=== PATIENT | female | born 1975 | race Caucasian/White ===

== ENCOUNTER 2016-07-04 17:33 | Emergency (ER) | payer OTHER ==
[~2016-07-04 17:33] MED LIST: HYDR-3533 PO
[2016-07-04 17:35] VITALS: BP 133/67; PULSE 90; RESP 12; TEMP 98.1; O2SAT 99
--- NOTE | 2016-07-04 18:18 | PD ---
HPI Chief Complaint: Stitch Wheeler Problem/Complaint Time Seen by Provider: 18:11 Travel History International Travel<30 days: No Contact w/Intl Traveler<30days: No Traveled to known affect area: No History of Present Illness HPI The patient is a 40-year-old female who presents to the emergency department for pelvic pain and vaginal discharge. The patient is a 2 day history of lower pelvic pain with vaginal discharge. The patient describes the discharge as thick, white, with a fishy and foul odor. The patient denies any nausea, vomiting, diarrhea, or upper abdominal pain. The patient denies any previous history of abdominal surgeries. The patient does have a history of Trichomonas 2 years ago, however, denies any history of gonorrhea or chlamydia. The patient's last menstrual cycle was on June 09, 2016, was abnormal. She is sexually active and not currently on control. Symptoms are mild to moderate, no known alleviating or exacerbating factors. PFSH Past Medical History Blood Disorders: No Heart Rhythm Problems: No Cancer: No Cardiac Catheterization: No Cardiovascular Problems: No Chest Pain: Yes Congestive Heart Failure: No Diabetes: No Diminished Hearing: No Endocrine: No Gastrointestinal Disorders: No Genitourinary: No Musculoskeletal: Yes (hairline fx r thumb AND BACK PROBLLEMS) Neurologic: No Psychiatric: No Reproductive: No Respiratory: No Immunizations Current: Yes (HEPATITIS) ?: Unknown LMP: 06/10/16 Menopausal: No : 5 Para: 4 Miscarriage: 0 : 0 Past Surgical History Coronary Artery Bypass Graft: No Other Surgery: Yes (1999--BREAST AUGMENTATION; MULTIPLE DENTAL EXTRACTIONS) Social History Alcohol Use: No Tobacco Use: Yes Substance Use: No Allergies-Medications (Allergen,Severity, Reaction): Coded Allergies: Codeine (Verified Allergy, Severe, SOB, 07/04/16) Toradol (Verified Allergy, Severe, "CHEST PAIN", 07/04/16) Reported Meds & Prescriptions Reported Meds & Active Scripts Active Review of Systems Except as stated in HPI: all other systems reviewed are Neg General / Constitutional: No: Fever Cardiovascular: No: Chest Pain or Discomfort Respiratory: No: Shortness of Breath Gastrointestinal: No: Nausea, Vomiting, Diarrhea, Abdominal Pain Genitourinary: Positive: Dysuria, Pelvic Pain, Discharge, No: Urgency, Frequency, Hematuria, Vaginal Bleeding Musculoskeletal: No: Myalgias, Arthralgias Skin: No Rash Physical Exam Narrative GENERAL: Awake, alert, pleasant 40-year-old female who appears her stated age and is in no acute respiratory distress. SKIN: Warm and dry. HEAD: Atraumatic. Normocephalic. EYES: Pupils equal and round. No scleral icterus. No injection or drainage. ENT: No nasal bleeding or discharge. Mucous membranes pink and moist. NECK: Trachea midline. No JVD. GASTROINTESTINAL: Abdomen soft, mild suprapubic tenderness, no rebound tenderness. Back: No CVA tenderness. Genitourinary: Exam was performed in the presence of a female nurse. External examination reveals no rashes or lesions. Back examination reveals thick white discharge in the vaginal vault. Cervix is closed. Mild cervical motion tenderness. MUSCULOSKELETAL: No obvious deformities. No clubbing. No cyanosis. No edema. NEUROLOGICAL: Awake and alert. No obvious cranial nerve deficits. Motor grossly within normal limits. Normal speech. PSYCHIATRIC: Appropriate mood and affect; insight and judgment normal. Data Data Last Documented VS Vital Signs Date Time Temp Pulse Resp B/P Pulse Ox O2 Delivery O2 Flow Rate FiO2 07/04/16 18:30 17 07/04/16 17:35 98.1 90 133/67 99 Room Air Orders Gc And Chlamydia Pcr (07/04/16 18:11) Wet Prep Profile (07/04/16 18:11) Urinalysis - C+S If Indicated (07/04/16 18:11) Ed Urine Pregnancytest Poc (07/04/16 18:11) Splinting (07/04/16 ) Azithromycin Powd Pack (Zithromax Powd P (07/04/16 19:45) Ceftriaxone Inj (Rocephin Inj) (07/04/16 19:45) Lidocaine 1% Inj (50 Ml) (Xylocaine 1% I (07/04/16 19:45) Labs Laboratory Tests Test 07/04/16 18:30 Urine Color YELLOW Urine Turbidity CLEAR Urine pH 7.0 Urine Specific [place] 1.007 Urine Protein NEG mg/dL Urine Glucose (UA) NEG mg/dL Urine Ketones NEG mg/dL Urine Occult Blood NEG Urine Nitrite NEG Urine Bilirubin NEG Urine Urobilinogen LESS THAN 2.0 MG/DL Urine Leukocyte Esterase NEG Urine RBC 1 /hpf Urine WBC 1 /hpf Urine Squamous Epithelial 2 /hpf Cells Microscopic Urinalysis Comment CULT NOT INDICATED Clue Cells (Wet Prep) NONE SEEN Vaginal Trichomonas (Wet Prep) NONE SEEN Vaginal Yeast (Wet Prep) NONE SEEN MDM Medical Decision Making Medical Screen Exam Complete: Yes Emergency Medical Condition: Yes Medical Record Reviewed: Yes Interpretation(s) Laboratory Tests Test 07/04/16 18:30 Urine Color YELLOW Urine Turbidity CLEAR Urine pH 7.0 Urine Specific [place] 1.007 Urine Protein NEG mg/dL Urine Glucose (UA) NEG mg/dL Urine Ketones NEG mg/dL Urine Occult Blood NEG Urine Nitrite NEG Urine Bilirubin NEG Urine Urobilinogen LESS THAN 2.0 MG/DL Urine Leukocyte Esterase NEG Urine RBC 1 /hpf Urine WBC 1 /hpf Urine Squamous Epithelial 2 /hpf Cells Microscopic Urinalysis Comment CULT NOT INDICATED Clue Cells (Wet Prep) NONE SEEN Vaginal Trichomonas (Wet Prep) NONE SEEN Vaginal Yeast (Wet Prep) NONE SEEN Differential Diagnosis Differential diagnosis includes PID, cervicitis, Trichomonas, bacterial vaginosis, UTI, , ectopic , atypical appendicitis, pyelonephritis. Narrative Course A bedside UA test was obtained and UA was sent to lab. A pelvic exam was performed in the presence of a female nurse. Wet prep was sent to lab. Bedside UA test was negative. Wet prep was negative. UA is unremarkable. Patient's exam is consistent with vaginitis/cervicitis, therefore , patient was treated with Rocephin and Zithromax. The patient is advised to follow-up with her primary physician and return if symptoms worsen or progress. Diagnosis Primary Impression: Vaginitis Qualified Code: N76.0 - Acute vaginitis Additional Impression: Pelvic pain Patient Instructions: General Instructions Additional Instructions: Follow-up with your primary physician. Return if symptoms worsen or progress. Return for fever, pain that localizes to the right lower quadrant, and intractable nausea/vomiting. Disposition: 01 DISCHARGE HOME Condition: Stable Sudarshan Dutton MD Jul 04, 2016 18:18 Sudarshan Dutton MD Jul 04, 2016 18:18
[2016-07-04 19:22] LABS: BLOOD, URINE NEG (NEG); COMMENT (UR) CULT NOT INDICATED; CULTURE IF INDICATED CULT NOT INDICATED; GLUCOSE,URINE NEG (NEG); KETONE, URINE NEG (NEG); NITRITE,URINE NEG (NEG); SQUAMOUS EPITHELIAL CELL URINE 2 /hpf (0-5); URINE COLOR YELLOW (YELLW/STRAW)
[2016-07-04] MEDS ORDERED: LIDOCAINE HCL 1% 50 ML VIAL IM ONE (19:45)
[2016-07-04] MEDS ORDERED: AZITHROMYCIN PWD FOR SUSP 1 GM PACKET PO ONE (19:45)
[2016-07-04] MEDS ORDERED: cefTRIAXone 250 MG VIAL IM ONE (19:45)
[2016-07-04 21:21] LABS: CHLAMYDIA PCR NOT DETECTED (NOT DETECT); NEISSERIA PCR NOT DETECTED (NOT DETECT)
== END 2016-07-04 19:54 | disposition home or self-care (01) ==
LOC: NEPD 17:33
DX: N76.0 Acute vaginitis (principal); S62.90XA Unspecified fracture of unspecified hand, initial encounter for closed fracture; X58.XXXA Exposure to other specified factors, initial encounter
CPT/HCPCS: 29125; 81001; 84703; 87210; 87491; 87591; 96372; 99283; J0696

== ENCOUNTER 2016-12-10 09:10 | Emergency (ER) | payer OTHER ==
[~2016-12-10] VITALS: Ht 160 cm; Wt 55.0 kg
[2016-12-10 09:12] VITALS: BP 134/61; PULSE 60; RESP 20; TEMP 98.7; O2SAT 100
--- NOTE | 2016-12-10 09:42 | PD ---
HPI Chief Complaint: Related Problem Time Seen by Provider: 09:42 Travel History International Travel<30 days: No Contact w/Intl Traveler<30days: No Traveled to known affect area: No History of Present Illness HPI 41-year-old female came to the emergency room with history of pelvic pain since past 1 week. She found out last week that she was when she was at [facility] because of the pain. No spotting. The patient points to her lower back radiating bilaterally and coming to the front. It's a constant ache she said. No history of fever or chills. Vital signs were stable here. No history of dysuria. Patient is A1. She says she has been vomiting quite a bit for the past 1 week as well. Today she was slightly lightheaded. [facility] Past Medical History Narrative Medical List of her past medical, surgical, social family history was reviewed from the nursing note Blood Disorders: No Cardiac Catheterization: No Cardiovascular Problems: No Chest Pain: Yes Congestive Heart Failure: No Diabetes: No Diminished Hearing: No Endocrine: No Gastrointestinal Disorders: No Genitourinary: No Musculoskeletal: Yes (BACK PROBLLEMS) Neurologic: No Psychiatric: No Reproductive: No Respiratory: No Immunizations Current: Yes (HEPATITIS) ?: LMP: 10/09/16 : 5 Para: 4 Miscarriage: 0 : 0 Past Surgical History Coronary Artery Bypass Graft: No Other Surgery: Yes (1999--BREAST AUGMENTATION; MULTIPLE DENTAL EXTRACTIONS) Social History Alcohol Use: No Tobacco Use: Yes (6 cigarrettes per day) Substance Use: No Allergies-Medications (Allergen,Severity, Reaction): Coded Allergies: Codeine (Verified Allergy, Severe, SOB, 12/10/16) Toradol (Verified Allergy, Severe, "CHEST PAIN", 12/10/16) Comments List of allergies reviewed from the nursing note. Reported Meds & Prescriptions Reported Meds & Active Scripts Active Zofran Odt (Ondansetron Odt) 4 Mg Tab 4 Mg SL Q6HR PRN Narrative Medication List of her home medications reviewed from the nursing note. Review of Systems Except as stated in HPI: all other systems reviewed are Neg Physical Exam Narrative GENERAL: Awake, alert, moderate distress SKIN: Focused skin assessment warm/dry. HEAD: Atraumatic. Normocephalic. EYES: Pupils equal and round. No scleral icterus. No injection or drainage. ENT: No nasal bleeding or discharge. Mucous membranes pink and moist. NECK: Trachea midline. No JVD. CARDIOVASCULAR: Regular rate and rhythm. No murmur appreciated. RESPIRATORY: No accessory muscle use. Clear to auscultation. Breath sounds equal bilaterally. GASTROINTESTINAL: Abdomen soft, non-tender, nondistended. Hepatic and splenic margins not palpable. MUSCULOSKELETAL: No obvious deformities. No clubbing. No cyanosis. No edema. NEUROLOGICAL: Awake and alert. No obvious cranial nerve deficits. Motor grossly within normal limits. Normal speech. PSYCHIATRIC: Appropriate mood and affect; insight and judgment normal. Data Data Last Documented VS Vital Signs Date Time Temp Pulse Resp B/P Pulse Ox O2 Delivery O2 Flow Rate FiO2 12/10/16 09:41 61 18 12/10/16 09:12 98.7 134/61 100 Room Air Orders Beta Hcg (Quant/Titer) (12/10/16 09:49) Complete Blood Count With Diff (12/10/16 09:49) Basic Metabolic Panel (Bmp) (12/10/16 09:49) Type And Screen (12/10/16 09:49) Urinalysis - C+S If Indicated (12/10/16 09:49) Ed Poc Ultrasound (12/10/16 09:49) Sodium Chlor 0.9% 1000 Ml Inj (Ns 1000 M (12/10/16 10:00) Labs Laboratory Tests Test 12/10/16 10:00 White Blood Count 12.6 TH/MM3 Red Blood Count 4.21 MIL/MM3 Hemoglobin 13.0 GM/DL Hematocrit 39.3 % Mean Corpuscular Volume 93.3 FL Mean Corpuscular Hemoglobin 30.8 PG Mean Corpuscular Hemoglobin 33.0 % Concent Red Cell Distribution Width 13.4 % Platelet Count 207 TH/MM3 Mean Platelet Volume 8.5 FL Neutrophils (%) (Auto) 80.3 % Lymphocytes (%) (Auto) 14.2 % Monocytes (%) (Auto) 4.8 % Eosinophils (%) (Auto) 0.4 % Basophils (%) (Auto) 0.3 % Neutrophils # (Auto) 10.1 TH/MM3 Lymphocytes # (Auto) 1.8 TH/MM3 Monocytes # (Auto) 0.6 TH/MM3 Eosinophils # (Auto) 0.0 TH/MM3 Basophils # (Auto) 0.0 TH/MM3 CBC Comment DIFF FINAL Differential Comment Urine Color YELLOW Urine Turbidity CLEAR Urine pH 7.0 Urine Specific [place] 1.022 Urine Protein TRACE mg/dL Urine Glucose (UA) NEG mg/dL Urine Ketones NEG mg/dL Urine Occult Blood NEG Urine Nitrite NEG Urine Bilirubin NEG Urine Urobilinogen LESS THAN 2.0 MG/DL Urine Leukocyte Esterase NEG Urine RBC 2 /hpf Urine WBC 1 /hpf Urine Squamous Epithelial 4 /hpf Cells Urine Hyaline Casts 1 /lpf Urine Mucus FEW /lpf Microscopic Urinalysis Comment CULT NOT INDICATED Sodium Level 140 MEQ/L Potassium Level 3.5 MEQ/L Chloride Level 107 MEQ/L Carbon Dioxide Level 27.5 MEQ/L Anion Gap 6 MEQ/L Blood Urea Nitrogen 7 MG/DL Creatinine 0.62 MG/DL Estimat Glomerular Filtration 107 ML/MIN Rate Random Glucose 85 MG/DL Calcium Level 8.7 MG/DL Human Chorionic Gonadotropin, [address] MIU/ML Quant Blood Type A POSITIVE Antibody Screen NEGATIVE MDM Medical Decision Making Medical Screen Exam Complete: Yes Emergency Medical Condition: Yes Medical Record Reviewed: Yes Differential Diagnosis UTI, dehydration, ectopic Narrative Course 12 PM based on my bedside ultrasound patient has in utero with positive heartbeat. Blood test shows slight leukocytosis but otherwise UA is negative. I've given her liter of IV fluid. Given the fact that this pain has been going on for past 1 week and the abdomen seems benign I'm comfortable discharging her home. She'll go home with a prescription for Zofran. She has been asked to follow up with OB and return to the ER if symptoms worsen. Patient understands this. Procedures Procedure Narrative Emergency Department Pelvic ultrasound was performed with patient consent. The curvilinear probe was used in the transverse and sagittal views within the suprapubic region revealing single, live intrauterine . heart rate was 127 bpm. See this measures 6 weeks 3 days by crown-rump length. EKG Prior to Arrival: No Diagnosis Primary Impression: Pelvic pain Additional Impressions: Intrauterine First trimester Vomiting during Referrals: Primary Care Physician 2 days Additional Instructions: Please follow-up with your OB for the next couple days. Return to the ER if the condition worsens or any other new concerns. Drink lots of fluids to stay hydrated during the . Do not lift heavy weight. Take the medication as per the prescription direction. Med/Other Pt SpecificInfo: Prescription(s) given Scripts Ondansetron Odt (Zofran Odt)4 Mg Tab4 Mg SL Q6HR PRN (Nausea/Vomiting) #20 TAB Ref 0 Prov:Ari Mckeon MD 12/10/16 Disposition: 01 DISCHARGE HOME Condition: Stable Ari Mckeon MD Dec 10, 2016 09:42
[2016-12-10] MEDS ORDERED: SODIUM CHLOR 0.9% 1000 ML INJ 1,000 ML IV ONE (10:00)
[2016-12-10 10:26] LABS: AUTOMATED NEUTROPHIL # 10.1 TH/MM3 (1.8-7.7); BASOPHIL % 0.3 % (0.0-2.0); EOSINOPHIL % 0.4 % (0.0-4.0); HEMATOCRIT 39.3 % (35.0-46.0); HEMO FLAGS DIFF FINAL; LYMPH % 14.2 % (9.0-44.0); LYMPHOCYTE # 1.8 TH/MM3 (1.0-4.8); MEAN CELL VOLUME 93.3 FL (80.0-100.0); MEAN CORPUSCULAR HEMOGLOBIN 30.8 PG (27.0-34.0); MONO % 4.8 % (0.0-8.0); NEUT % 80.3 % (16.0-70.0); PLATELET COUNT 207 TH/MM3 (150-450); RED BLOOD COUNT 4.21 MIL/MM3 (4.00-5.30); RED CELL DISTRIBUTION WIDTH 13.4 % (11.6-17.2); WHITE BLOOD COUNT 12.6 TH/MM3 (4.0-11.0)
[2016-12-10 10:36] LABS: BLOOD, URINE NEG (NEG); GLUCOSE,URINE NEG (NEG); HYALINE CAST, URINE 1 /lpf (RARE); KETONE, URINE NEG (NEG); MUCUS URINE FEW /lpf (OCC); NITRITE,URINE NEG (NEG); SQUAMOUS EPITHELIAL CELL URINE 4 /hpf (0-5); URINE COLOR YELLOW (YELLW/STRAW)
[2016-12-10 10:37] LABS: COMMENT (UR) CULT NOT INDICATED; CULTURE IF INDICATED CULT NOT INDICATED
[2016-12-10 10:49] LABS: BICARBONATE 27.5 MEQ/L (21.0-32.0); POTASSIUM 3.5 MEQ/L (3.5-5.1)
[2016-12-10] MEDS ORDERED: ZOFR4TAB3 SL (12:00)
== END 2016-12-10 12:30 | disposition home or self-care (01) ==
LOC: NEPE 09:10
DX: O21.9 Vomiting of pregnancy, unspecified (principal); O26.899 Other specified pregnancy related conditions, unspecified trimester; R10.2 Pelvic and perineal pain; R42 Dizziness and giddiness; O99.331 Smoking (tobacco) complicating pregnancy, first trimester; Z79.899 Other long term (current) drug therapy
CPT/HCPCS: 80048; 81001; 84702; 85025; 86850; 86900; 86901; 96360; 99285; J7030

== ENCOUNTER → 2017-01-02 | Outpatient (CLI) | payer OTHER ==
[~2017-01-02] MED LIST changes: -HYDR-3533 PO; +ZOFR4TAB3 SL
== END ==
LOC: HPND 10:11
PROVIDERS: ATTEND Obstetrics & Gynecology
DX: O09.521 Supervision of elderly multigravida, first trimester (principal); Z3A.10 10 weeks gestation of pregnancy
CPT/HCPCS: 76801

== ENCOUNTER → 2017-01-03 | Outpatient (CLI) | payer OTHER | LOC: HPND 10:48 | PROVIDERS: ATTEND Obstetrics & Gynecology | DX: O09.521 Supervision of elderly multigravida, first trimester (principal); O35.8XX0 Maternal care for other (suspected) fetal abnormality and damage, not applicable or unspecified; O09.291 Supervision of pregnancy with other poor reproductive or obstetric history, first trimester; Z3A.10 10 weeks gestation of pregnancy | CPT/HCPCS: 76815 ==

== ENCOUNTER → 2017-02-16 | Outpatient (CLI) | payer OTHER ==
[~2017-02-16] MED LIST changes: +DOXY100C PO; -ZOFR4TAB3 SL
== END ==
LOC: HPND 09:29
PROVIDERS: ATTEND Obstetrics & Gynecology
DX: O35.8XX0 Maternal care for other (suspected) fetal abnormality and damage, not applicable or unspecified (principal); O35.1XX0 Maternal care for (suspected) chromosomal abnormality in fetus, not applicable or unspecified; O09.522 Supervision of elderly multigravida, second trimester
CPT/HCPCS: 76815

== ENCOUNTER 2017-02-21 10:28 | Observation (INO) | payer OTHER ==
[2017-02-21] VITALS (15 sets, daily range): BP systolic 75–121; BP diastolic 42–83; PULSE 53–76; RESP 16–22; TEMP 98.9–101
--- NOTE | 2017-02-21 11:09 | HHI.HP ---
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 Date Seen: Feb 21, 2017 Travel History International Travel<30 Days: No Contact w/Intl Traveler<30Days: No History of Present Illness HPI Patient is a 41 year old who presents today for induction for termination of fetus with trisomy 18 with multiple anomalies. Patient has been seen, evaluated and counseled by maternal medicine that a risk for Trisomy 18 is exceedingly high. Multiple anomalies were seen on ultrasound. Patient given the option for termination of versus continuation, and she has opted for termination. She denies any vaginal bleeding or discharge. No gush or leaking of fluid. No contractions. care with [facility]. History Past Medical History Medical History: Denies Significant Hx Obstetric History Obstetric History 1997: Term , uncomplicated vaginal delivery, male in good health 2001: Term , uncomplicated vaginal delivery, 8 lbs. 4 oz. male in good health 2004: Term , uncomplicated vaginal delivery 7 lbs. 12 oz. male infant in good health 2012: Term , uncomplicated vaginal delivery, 8 lbs. 7 oz. infant male in good health 2015: , 22 week , complicated by bleeding and still , vaginal delivery, female baby Past Surgical History Narrative Surgical Breast augmentation Repair of right leg fracture Family History Family History: Negative Social History Alcohol Use: No Tobacco Use: No Substance Abuse: No Allergies-Medications (Allergen,Severity, Reaction): Coded Allergies: codeine (Unverified Allergy, Severe, SOB, 02/15/17) ketorolac (Unverified Allergy, Severe, "CHEST PAIN", 02/15/17) Home Meds Discontinued Scripts Ondansetron Odt (Zofran Odt) 4 Mg Tab, 4 MG SL Q6HR Y for Nausea/Vomiting, #20 TAB 0 Refills Prov:Ari Mckeon MD 12/10/16 Review of Systems Except as stated in HPI: all other systems reviewed are Neg General / Constitutional: No: Fever, Chills Eyes: No: Blurred Vision, Visual changes HENT: No: Headaches Cardiovascular: No: Chest Pain or Discomfort, Palpitations Respiratory: No: Cough, Short of Breath Gastrointestinal: No: Nausea, Vomiting, Abdominal Pain Genitourinary: No: Dysuria, Hematuria, Pelvic Pain, Discharge, Vaginal Bleeding Musculoskeletal: No: Edema Neurologic: No: Headache Psychiatric: No: Substance Abuse Physical Exam Narrative GENERAL: Well-nourished, well-developed patient. SKIN: Warm and dry. HEAD: Normocephalic and atraumatic. EYES: No scleral icterus. No injection or drainage. ENT: No nasal drainage noted. Mucous membranes pink. Airway patent. NECK: Supple, trachea midline. No JVD. CARDIOVASCULAR: Regular rate and rhythm without murmurs, gallops, or rubs. RESPIRATORY: Breath sounds equal bilaterally. No accessory muscle use. ABDOMEN/GI: Abdomen soft, non-tender, bowel sounds present, no rebound, no guarding Gravid to 17 weeks size GENITOURINARY: External Genitalia: intact and normal in appearance BUS glands: normal Cervix: posterior Dilatation: 0 Effacement: 0 Station: -3 Presentation: vertex Membranes: intact Uterine Contractions: none EXTREMITIES: No cyanosis or edema. BACK: Nontender without obvious deformity. No CVA tenderness. NEUROLOGICAL: Awake and alert. Motor and sensory grossly within normal limits. Normal speech. Caprini VTE Risk Assessment Caprini VTE Risk Assessment: No/Low Risk (score <= 1) Caprini Risk Assessment Model Point Value = 1 Point Value = 2 Point Value = 3 Point Value = 5 Age 41-60 Minor surgery BMI > 25 kg/m2 Swollen legs Varicose veins or History of unexplained or recurrent spontaneous Oral contraceptives or hormone replacement Sepsis (< 1 month) Serious lung disease, including pneumonia (< 1 month) Abnormal pulmonary function Acute myocardial infarction Congestive heart failure (< 1 month) History of inflammatory bowel disease Medical patient at bed rest Age 61-74 Arthroscopic surgery Major open surgery (> 45 min) Laparoscopic surgery (> 45 min) Malignancy Confined to bed (> 72 hours) Immobilizing plaster cast Central venous access Age >= 75 History of VTE Family history of VTE Factor V Leiden Prothrombin [id number] Lupus anticoagulant Anticardiolipin antibodies Elevated serum homocysteine Heparin-induced thrombocytopenia Other congenital or acquired thrombophilia Stroke (< 1 month) Elective arthroplasty Hip, pelvis, or leg fracture Acute spinal cord injury (< 1 month) Prophylaxis Regimen Total Risk Factor Score Risk Level Prophylaxis Regimen 0-1 Low Early ambulation 2 Moderate Order ONE of the following: *Sequential Compression Device (SCD) *Heparin 5000 units SQ BID 3-4 Higher Order ONE of the following medications: *Heparin 5000 units SQ TID *Enoxaparin/Lovenox 40 mg SQ daily (WT < 150 kg, CrCl > 30 mL/min) *Enoxaparin/Lovenox 30 mg SQ daily (WT < 150 kg, CrCl > 10-29 mL/min) *Enoxaparin/Lovenox 30 mg SQ BID (WT < 150 kg, CrCl > 30 mL/min) AND/OR *Sequential Compression Device (SCD) 5 or more Highest Order ONE of the following medications: *Heparin 5000 units SQ TID (Preferred with Epidurals) *Enoxaparin/Lovenox 40 mg SQ daily (WT < 150 kg, CrCl > 30 mL/min) *Enoxaparin/Lovenox 30 mg SQ daily (WT < 150 kg, CrCl > 10-29 mL/min) *Enoxaparin/Lovenox 30 mg SQ BID (WT < 150 kg, CrCl > 30 mL/min) AND *Sequential Compression Device (SCD) Data Data Vital Signs Reviewed: Yes Orders Orders Admit To Inpatient (02/21/17 ) Code Status (02/21/17 11:06) Vital Signs (Adult) Q4H (02/21/17 11:06) Activity Oob Ad Yelena (02/21/17 11:06) Diet Regular Basic (02/21/17 Lunch) Sodium Chloride 0.9% Flush (Ns Flush) (02/21/17 11:15) Assessment/Plan Problem List: (1) (induced) termination of with other complications ICD Codes: O04.89 - (Induced) termination of with other complications (2) Trisomy 18 of fetus in current ICD Codes: O35.1XX0 - Maternal care for (suspected) chromosomal abnormality in fetus, not applicable or unspecified (3) Congenital anomalies ICD Codes: Q89.7 - Multiple congenital malformations, not elsewhere classified Assessment and Plan 41 year old at 17 weeks gestation. Induced termination of for Trisomy 18 and multiple anomalies with Cytotec 400mcg Vaginally Q4H. sdw Millie Wong MD, R3 Feb 21, 2017 11:09
[2017-02-21] MEDS ORDERED: CITRIC ACID-SODIUM CITRATE LIQ 30 ML UDC PO SCH (11:15)
[2017-02-21] MEDS ORDERED: MORPHINE SULFATE 10 MG/ML INJ IV PRN (11:15)
[2017-02-21] MEDS ORDERED: SODIUM CHLORIDE 0.9% FLUSH 10 ML FLUSH IV FLUSH PRN (11:15)
[2017-02-21] MEDS ORDERED: ONDANSETRON HCL 4 MG/2 ML VIAL IV PRN (11:15)
[2017-02-21] MEDS ORDERED: DIPHENOXYLATE/ATROPINE 2.5 MG/0.025 MG TAB PO PRN (11:15)
[2017-02-21] MEDS ORDERED: LORazepam 1 MG TAB PO PRN (11:15)
[2017-02-21] MEDS ORDERED: MORPHINE SULFATE 4 MG/ML INJ IV PRN (11:15)
[2017-02-21 11:50] LABS: AUTOMATED NEUTROPHIL # 10.2 TH/MM3 (1.8-7.7); BASOPHIL # 0.1 TH/MM3 (0-0.2); BASOPHIL % 0.8 % (0.0-2.0); EOSINOPHIL # 0.1 TH/MM3 (0-0.4); EOSINOPHIL % 0.4 % (0.0-4.0); HEMATOCRIT 37.2 % (35.0-46.0); HEMO FLAGS DIFF FINAL; LYMPH % 14.7 % (9.0-44.0); LYMPHOCYTE # 1.9 TH/MM3 (1.0-4.8); MEAN CELL VOLUME 94.9 FL (80.0-100.0); MEAN CORPUSCULAR HEMOGLOBIN 31.6 PG (27.0-34.0); MEAN CORPUSCULAR HGB CONC 33.3 % (32.0-36.0); MONO % 3.2 % (0.0-8.0); NEUT % 80.9 % (16.0-70.0); PLATELET COUNT 244 TH/MM3 (150-450); RED BLOOD COUNT 3.92 MIL/MM3 (4.00-5.30); RED CELL DISTRIBUTION WIDTH 13.6 % (11.6-17.2); WHITE BLOOD COUNT 12.6 TH/MM3 (4.0-11.0)
[2017-02-21 12:06] LABS: ALT (GPT) 11 U/L (10-53); ANION GAP 10 MEQ/L (5-15); AST (GOT) 12 U/L (15-37); BICARBONATE 24.3 MEQ/L (21.0-32.0); BLOOD UREA NITROGEN 5 MG/DL (7-18); CHLORIDE 106 MEQ/L (98-107); GLOMERULAR FILTRATION RATE 107 ML/MIN (>89); POTASSIUM 3.4 MEQ/L (3.5-5.1); SODIUM (NA) 140 MEQ/L (136-145)
[2017-02-21 12:09] LABS: ALKALINE PHOSPHATASE 50 U/L (45-117); TOTAL BILIRUBIN ADULT 0.4 MG/DL (0.2-1.0)
[2017-02-21 12:15] LABS: BACTERIA, URINE RARE /hpf; BLOOD, URINE NEG (NEG); COMMENT (UR) CULT NOT INDICATED; CULTURE IF INDICATED CULT NOT INDICATED; GLUCOSE,URINE NEG (NEG); KETONE, URINE 10 mg/dL (NEG); NITRITE,URINE NEG (NEG); PH, URINE 5.5 (5.0-8.5); RENAL EPITHELIAL CELLS <1 /hpf; SQUAMOUS EPITHELIAL CELL URINE 1 /hpf (0-5); URINE COLOR YELLOW (YELLW/STRAW)
[2017-02-21] MEDS: MISOPROSTOL 200 MCG TAB VAGINAL SCH ×3 (13:28→19:53)
[2017-02-21] MEDS: ACETAMINOPHEN 325 MG TAB PO PRN ×2 (16:37→20:11)
[2017-02-21] MEDS: MORPHINE SULFATE 4 MG/ML INJ IV PRN ×2 (17:59→20:30)
[2017-02-21] MEDS ORDERED: OXYTOCIN 30 UNITS-500ML PREMIX 500 ML ONE (19:14)
--- NOTE | 2017-02-21 19:44 | PD.OB.DELI ---
Weeks gestation: 17 Gest age assessed date: Feb 21, 2017 Gest age assessed time: 13:00 Pt started active labor?: No Medical induction of labor?: Yes Medical induction start date: Feb 21, 2017 Medical induction start time: 13:00 Artificial rupture of membrane: No Anesthesia: None Episiotomy: None Vaginal Delivery: Normal Presentation: Vertex Nuchal Cord: None Delayed cord clamping (45 sec): No : Female Delivery date: Feb 21, 2017 Delivery time: 19:08 One Minute : 0 Five Minute : 0 Weight: 112 gm Placenta: Spontaneous delivery, Intact Laceration: No lacerations Estimated blood loss: 50 cc Additional Information 17 wk IUP with Tri 18 , multiple anomalies , pt opted for ETOP Trey Barnes II, MD Feb 21, 2017 19:44
[2017-02-21] MEDS ORDERED: cefTRIAXone INJ 2,000 MG in SODIUM CHLORIDE 0.9% INJ 100 ML IV ONE (20:00)
[2017-02-21] MEDS ORDERED: IBUPROFEN 600 MG TAB PO PRN (20:00)
[2017-02-21] MEDS ORDERED: OXYTOCIN 30 UNITS-500ML PREMIX 500 ML IV ONE (20:00)
[2017-02-21] MEDS ORDERED: SODIUM CHLORIDE 0.9% FLUSH 10 ML FLUSH IV FLUSH SCH (21:00)
== END 2017-02-21 23:57 | disposition home or self-care (01) ==
LOC: H2EA 10:28
PROVIDERS: ADMIT Obstetrics & Gynecology Maternal & Fetal Medicine; ATTEND Obstetrics & Gynecology Maternal & Fetal Medicine
DX: O35.1XX1 Maternal care for (suspected) chromosomal abnormality in fetus, fetus 1 (principal); Q89.9 Congenital malformation, unspecified; Q91.3 Trisomy 18, unspecified; Z3A.17 17 weeks gestation of pregnancy; Z37.1 Single stillbirth
CPT/HCPCS: 59409; 80053; 81001; 85025; 88300; 88305; 96365; 96366; G0378; J0696; J2270; J2590

== ENCOUNTER → 2017-02-21 | Outpatient (CLI) | payer OTHER | LOC: HPND 07:43 | PROVIDERS: ATTEND Obstetrics & Gynecology | DX: O35.8XX0 Maternal care for other (suspected) fetal abnormality and damage, not applicable or unspecified (principal); O35.1XX0 Maternal care for (suspected) chromosomal abnormality in fetus, not applicable or unspecified; O09.522 Supervision of elderly multigravida, second trimester; O09.292 Supervision of pregnancy with other poor reproductive or obstetric history, second trimester; O28.0 Abnormal hematological finding on antenatal screening of mother | CPT/HCPCS: 76811 ==

== ENCOUNTER 2017-04-16 09:53 | Emergency (ER) | payer OTHER ==
[~2017-04-16] VITALS: Ht 160 cm; Wt 56.0 kg
[2017-04-16 09:56] VITALS: BP 115/58; PULSE 88; RESP 15; TEMP 98.4; O2SAT 97
--- NOTE | 2017-04-16 10:20 | PD ---
HPI Chief Complaint: Assistant Health Educator Problem/Complaint Time Seen by Provider: 10:05 Travel History International Travel<30 days: No Contact w/Intl Traveler<30days: No Traveled to known affect area: No History of Present Illness HPI 41-year-old female presents to emergency Department with complaint of pelvic pain, vaginal discharge, vaginal odor, dysuria times one week. Reports diarrhea 3 weeks. Reports vomiting in the mornings only for the last week. Reports subjective fevers. Has not taken her temperature and cannot reported MAXIMUM TEMPERATURE. Last menstrual period was March 18. Says her significant other of 3 years when outside of the relationship and she found out 3 weeks ago. Possible exposure to STD/STI. Has been taking ibuprofen and Tylenol for symptom management. Rates pain 7/10. Reports pain as a throbbing and shooting sensation. Denies history of abdominal surgeries. Is a patient of [facility] now. No known relieving or aggravating factors. Allergies to codeine and Toradol. Has no other medical complaints. No other modifying factors or associated signs and symptoms. PFSH Past Medical History Blood Disorders: No Cardiac Catheterization: No Cardiovascular Problems: No Chest Pain: Yes Congestive Heart Failure: No Diabetes: No Diminished Hearing: No Endocrine: No Gastrointestinal Disorders: No Genitourinary: No Neurologic: No Psychiatric: No Reproductive: No Respiratory: No Immunizations Current: Yes (HEPATITIS) ?: Unknown LMP: 03/18/17 : 5 Para: 4 Miscarriage: 0 : 0 Past Surgical History Coronary Artery Bypass Graft: No Other Surgery: Yes (1999--BREAST AUGMENTATION; MULTIPLE DENTAL EXTRACTIONS) Social History Alcohol Use: No Tobacco Use: No Substance Use: No Allergies-Medications (Allergen,Severity, Reaction): Coded Allergies: codeine (Unverified Allergy, Severe, SOB, 02/15/17) ketorolac (Unverified Allergy, Severe, "CHEST PAIN", 02/15/17) Reported Meds & Prescriptions Reported Meds & Active Scripts Active No Active Prescriptions or Reported Medications Review of Systems Except as stated in HPI: all other systems reviewed are Neg Physical Exam Narrative GENERAL: Well-nourished, well-developed female female patient, in no acute distress; afebrile, nontoxic-appearing SKIN: Warm and dry. HEAD: Atraumatic. Normocephalic. EYES: Pupils equal and round. No scleral icterus. No injection or drainage. ENT: Mucous membranes pink and moist. NECK: Trachea midline. No lymphadenopathy. CARDIOVASCULAR: Regular rate and rhythm. No murmur appreciated. RESPIRATORY: No accessory muscle use. Clear to auscultation. Breath sounds equal bilaterally. GASTROINTESTINAL: Abdomen soft, non-tender, nondistended. Bilateral pelvic region tender to palpation. Hepatic and splenic margins not palpable. No guarding, rigidity, rebound tenderness. Bladder feels distended on palpation; with tenderness on palpation. PELVIC: Exam done in the presence of a nurse. Speculum exam reveals nonedematous and nonerythematous cervix with white, mucopurulent, foul-smelling discharge. Bimanual exam reveals no palpable masses or adnexa tenderness, no uterine tenderness. Positive cervical motion tenderness. BACK: No CVA tenderness. MUSCULOSKELETAL: No obvious deformities. No clubbing. No cyanosis. No edema. NEUROLOGICAL: Awake and alert. No obvious cranial nerve deficits. Motor grossly within normal limits. Normal speech. PSYCHIATRIC: Appropriate mood and affect; insight and judgment normal. Data Data Last Documented VS Vital Signs Date Time Temp Pulse Resp B/P (MAP) Pulse Ox O2 Delivery O2 Flow Rate FiO2 04/16/17 09:56 98.4 88 15 115/58 (77) 97 Orders Orders Gc And Chlamydia Pcr (04/16/17 10:05) Wet Prep Profile (04/16/17 10:05) Urinalysis - C+S If Indicated (04/16/17 10:05) Ed Urine Pregnancytest Poc (04/16/17 10:05) Acetaminophen (Tylenol) (04/16/17 11:00) Azithromycin Powd Pack (Zithromax Powd P (04/16/17 11:30) Ceftriaxone Inj (Rocephin Inj) (04/16/17 11:30) Lidocaine 1% Inj (50 Ml) (Xylocaine 1% I (04/16/17 11:30) Labs Laboratory Tests Test 04/16/17 11:06 04/16/17 11:20 Urine Color YELLOW Urine Turbidity HAZY Urine pH 7.0 Urine Specific [place] 1.020 Urine Protein NEG mg/dL Urine Glucose (UA) NEG mg/dL Urine Ketones NEG mg/dL Urine Occult Blood NEG Urine Nitrite NEG Urine Bilirubin NEG Urine Urobilinogen 2.0 MG/DL Urine Leukocyte Esterase NEG Urine RBC 3 /hpf Urine WBC 1 /hpf Urine Squamous Epithelial Cells 4 /hpf Urine Mucus FEW /lpf Microscopic Urinalysis Comment CULT NOT INDICATED Clue Cells (Wet Prep) NONE SEEN Vaginal Trichomonas (Wet Prep) NONE SEEN Vaginal Yeast (Wet Prep) NONE SEEN MDM Medical Decision Making Medical Screen Exam Complete: Yes Emergency Medical Condition: Yes Medical Record Reviewed: Yes Differential Diagnosis PID, chlamydia, gonorrhea, trichomoniasis, bacterial vaginosis, Narrative Course 41-year-old female physical exam consistent with possible PID. Positive cervical motion tenderness. Cervix is edematous and erythematous with foul smelling vaginal discharge. Patient will be empirically treated with Rocephin, azithromycin, and doxycycline for home. Rocephin And azithromycin administered in the ER. 1124: Urinalysis without signs of infection. 1240: Trichomonas, vaginal yeast, clue cells negative. Chlamydia and gonorrhea pending. Patient was discussed with Dr. Deluca, my attending physician , and she agrees with my plan of care. Doxycycline prescribed for home. Patient is a patient of [facility] and says she will make an appointment for follow-up. Instructed patient to follow up with primary care provider. Patient verbalizes understanding and agreement with treatment plan. Patient is medically cleared and stable for discharge. Discussed reasons to return to the emergency department. Patient agrees with treatment plan. The patients vital signs are stable and the patient is stable for outpatient follow- up and treatment. Patient discharged home, stable and in no acute distress. Diagnosis Primary Impression: Cervicitis Referrals: [facility] Primary Care Physician Patient Instructions: Chlamydia (ED), General Instructions, Gonorrhea (ED), Sexually Transmitted Diseases (ED) Additional Instructions: Avoid sexual activity until you follow up with her primary care provider Inform all sexual partners within the past 3-6 months that they need to be evaluated and treated Use condoms every time you have sex Follow-up with primary care provider Follow-up with [facility], [facility], or [employer] [employer] Return to the emergency department immediately with worsening of symptoms Med/Other Pt SpecificInfo: Prescription(s) given Scripts Doxycycline Hyclate (Doxycycline Hyclate) 100 Mg Cap 100 MG PO BID for Infection for 14 Days, #28 CAP 0 Refills Prov: Yasmin Egan 04/16/17 Disposition: 01 DISCHARGE HOME Condition: Stable Yasmin Egan Apr 16, 2017 10:19
[2017-04-16] MEDS ORDERED: ACETAMINOPHEN 325 MG TAB PO ONE (11:00)
[2017-04-16 11:15] LABS: BILIRUBIN, URINE NEG (NEG); BLOOD, URINE NEG (NEG); GLUCOSE,URINE NEG (NEG); KETONE, URINE NEG (NEG); MUCUS URINE FEW /lpf (OCC); NITRITE,URINE NEG (NEG); SQUAMOUS EPITHELIAL CELL URINE 4 /hpf (0-5); URINE COLOR YELLOW (YELLW/STRAW); URINE LEUKOCYTE ESTERASE NEG (NEG)
[2017-04-16] MEDS ORDERED: LIDOCAINE HCL 1% 50 ML VIAL IM ONE (11:30)
[2017-04-16] MEDS ORDERED: cefTRIAXone 250 MG VIAL IM ONE (11:30)
[2017-04-16] MEDS ORDERED: AZITHROMYCIN PWD FOR SUSP 1 GM PACKET PO ONE (11:30)
[2017-04-16] MEDS ORDERED: DOXY100C PO (12:42)
== END 2017-04-16 13:05 | disposition home or self-care (01) ==
LOC: NEPD 09:53
DX: N72 Inflammatory disease of cervix uteri (principal); R19.7 Diarrhea, unspecified
CPT/HCPCS: 81001; 84703; 87210; 87491; 87591; 96372; 99284; J0696

== ENCOUNTER 2017-08-27 08:33 | Emergency (ER) | payer OTHER ==
[~2017-08-27] VITALS: Ht 160 cm; Wt 56.0 kg
[2017-08-27 08:45] VITALS: BP 115/53; PULSE 63; RESP 16; TEMP 97.4; O2SAT 100
--- NOTE | 2017-08-27 09:17 | PD ---
HPI Chief Complaint: Musculoskeletal Complaint Time Seen by Provider: 09:06 Travel History International Travel<30 days: No Contact w/Intl Traveler<30days: No Traveled to known affect area: No History of Present Illness HPI The patient is a 42-year-old female who presents to the emergency department for right foot pain. The patient states that she awakened this morning with for pain that is located over the anterior aspect of the right foot. The pain is moderate, worse with palpation and movement. The pain does radiate up the medial aspect of the right lower extremity. She does have a history of previous surgery to right lower extremity. She denies any significant swelling to the right calf for right lower extremity, does note mild swelling over the dorsal aspect the right foot. She denies any recent hospitalizations, travel, surgery, or history of pulmonary embolism or DVT. She is not currently on control pill. She denies any fever. She denies any history of gout or pseudogout. She denies any assisted fever, chills, or sweats. She denies any history of IV drug use. She cannot recall any specific trauma to the right lower extremity or right foot, however, does exercise. PFSH Past Medical History Blood Disorders: No Cardiac Catheterization: No Cardiovascular Problems: No Chest Pain: Yes Congestive Heart Failure: No Diabetes: No Diminished Hearing: No Endocrine: No Gastrointestinal Disorders: No Genitourinary: No Neurologic: No Psychiatric: No Reproductive: No Respiratory: No Immunizations Current: Yes (HEPATITIS) ?: Unknown Menopausal: No : 6 Para: 4 Miscarriage: 0 : 0 Ectopic : No Ovarian Cysts: No Past Surgical History Section: No Coronary Artery Bypass Graft: No Hysterectomy: No Other Surgery: Yes (1999--BREAST AUGMENTATION; MULTIPLE DENTAL EXTRACTIONS) Social History Alcohol Use: No Tobacco Use: Yes Substance Use: No Allergies-Medications (Allergen,Severity, Reaction): Coded Allergies: codeine (Verified Allergy, Severe, SOB, 08/27/17) ketorolac (Verified Allergy, Severe, "CHEST PAIN", 08/27/17) tramadol (Verified Allergy, Severe, makes her "loopy", 08/27/17) Reported Meds & Prescriptions Reported Meds & Active Scripts Active Doxycycline Hyclate 100 Mg Cap 100 Mg PO BID 14 Days Review of Systems General / Constitutional: No: Fever Skin: Positive Other (mild swelling over the anterior aspect of the right foot) Neurologic: No: Weakness, Paresthesia, Sensory Disturbance Physical Exam Narrative GENERAL: Awake, alert, pleasant 42-year-old female who appears her stated age and is in no acute respiratory distress. SKIN: Focused skin assessment warm/dry. HEAD: Atraumatic. Normocephalic. EYES: Pupils equal and round. No scleral icterus. No injection or drainage. MUSCULOSKELETAL: No obvious deformities. Mild swelling over the anterior aspect the mid right foot, tender to palpation. No obvious deformity noted. No tenderness of the medial lateral malleus. Patient is able flex and extend the right knee without difficulty. The right calf is soft. No edema noted of the right tibia/fibula. No visible puncture ramsey or areas of infection between the toes are over the dorsal aspect/plantar aspect of the right foot. Well-healed scar over the medial aspect of the right foot from the ankle to the knee. Palpable pins over the medial malleus, however, overlying skin appears intact with no erythema. NEUROLOGICAL: Awake and alert. No obvious cranial nerve deficits. Motor grossly within normal limits. Normal speech. PSYCHIATRIC: Appropriate mood and affect; insight and judgment normal. Data Data Last Documented VS Vital Signs Date Time Temp Pulse Resp B/P (MAP) Pulse Ox O2 Delivery O2 Flow Rate FiO2 08/27/17 08:45 97.4 63 16 115/53 (73) 100 Orders Orders Foot, Complete ([id number]) (08/27/17 09:26) [facility] Medical Decision Making Medical Screen Exam Complete: Yes Emergency Medical Condition: Yes Medical Record Reviewed: Yes Interpretation(s) X-ray of the right foot is negative for acute fracture Differential Diagnosis Differential diagnosis includes arthropathy, gout, pseudogout, sprain, strain, fracture, cellulitis. Narrative Course X-ray of the right foot was obtained. X-rays negative for acute fracture. The patient has mild erythema with pinpoint tenderness over the anterior midfoot, may be secondary to arthropathy. There is no evidence of infectious source, patient is afebrile. Patient is allergic to ketorolac, will be placed on Medrol Dosepak and [place]. She is advised to return for progressing symptoms, fever, or spreading of the erythema proximally. She will be provided a copy of her x-ray results at discharge. She is advised to follow-up with a primary physician. Diagnosis Primary Impression: Right foot pain Patient Instructions: General Instructions Additional Instructions: Apply ice to the affected area. Activity as tolerated. Please provide the patient a copy of her x-ray results at discharge. Return for progressing symptoms, increasing erythema, or fever. Med/Other Pt SpecificInfo: Prescription(s) given Scripts Hydrocodone-Acetaminophen ([place]) 5 Mg-325 Mg Tab 1 TAB PO Q6H Y for PAIN, #10 TAB 0 Refills Prov: Sudarshan Dutton MD 08/27/17 Methylprednisolone Dosepak (Medrol Dosepak) 4 Mg Dspk 4 MG PO DIRECTED, #1 DSPK 0 Refills Per Pharmacist direction Prov: Sudarshan Dutton MD 08/27/17 Disposition: 01 DISCHARGE HOME Condition: Stable Sudarshan Dutton MD Aug 27, 2017 09:17
--- NOTE | 2017-08-27 09:56 | RADRPT ---
EXAM DATE/TIME: 08/27/2017 09:22 [place] COMPARISON: No previous studies available for comparison. INDICATIONS : Right foot pain all over, with no trauma. MEDICAL HISTORY : None. SURGICAL HISTORY : None. ENCOUNTER: Initial ACUITY: 1 day PAIN SCORE: 8/10 LOCATION: Right foot all over FINDINGS: Three view examination of the right foot demonstrates no soft tissue swelling, dislocation, or fractu re. The tarsal bones appear intact. The interphalangeal and metatarsophalangeal joints are intact. The calcaneus is intact. Bony mineralization is normal. Previous intramedullary erik distal tibia CONCLUSION: Negative for acute fracture Antoine Mccullough MD FACR on August 27, 2017 at 9:53 Board Certified Radiologist. This report was verified electronically.
[2017-08-27] MEDS ORDERED: NORC5TAB PO (09:58)
[2017-08-27] MEDS ORDERED: MEDR4PAK PO (09:58)
== END 2017-08-27 10:14 | disposition home or self-care (01) ==
LOC: NEPD 08:33
DX: M79.671 Pain in right foot (principal); Z72.0 Tobacco use; R22.41 Localized swelling, mass and lump, right lower limb
CPT/HCPCS: 73630; 99283

== ENCOUNTER 2017-11-26 14:27 | Emergency (ER) | payer OTHER ==
[~2017-11-26] VITALS: Ht 160 cm; Wt 55.0 kg
[~2017-11-26 14:27] MED LIST changes: +MEDR4PAK PO; +NORC5TAB PO
[2017-11-26 14:49] VITALS: BP 114/74; PULSE 58; RESP 18; TEMP 98.3; O2SAT 100
[2017-11-27] MEDS ORDERED: DIFL150T PO (02:46)
[2017-11-27] MEDS ORDERED: MACR100C2 PO (02:46)
== END 2017-11-26 16:00 | disposition left against medical advice (07) ==
LOC: NED 14:27
DX: N94.9 Unspecified condition associated with female genital organs and menstrual cycle (principal)
CPT/HCPCS: 99281

== ENCOUNTER 2017-11-26 21:53 | Emergency (ER) | payer OTHER ==
[2017-11-26 22:49] VITALS: BP 105/56; PULSE 62; RESP 16; TEMP 98.9; O2SAT 99
--- NOTE | 2017-11-27 00:33 | PD ---
HPI Chief Complaint: Related Problem Time Seen by Provider: 00:01 Travel History International Travel<30 days: No Contact w/Intl Traveler<30days: No Traveled to known affect area: No History of Present Illness HPI The patient is a 42-year-old female who presents to the emergency department for vaginal discharge. The patient is a who states her last menstrual cycle was September 08, 2017. However, she has a history of irregular menstrual cycles. She has had multiple positive test at home, however , she does note know her current EDC. The patient states over the last several days she has developed vaginal discharge which she describes as thick, white, with pruritus. She also notes some perivaginal irritation and mild dysuria. She denies any nausea, vomiting, pelvic abdominal cramping, pain, or vaginal bleeding. She has an appointment on Sunday to see an sales teacher at [facility]. Symptoms are moderate. PFSH Past Medical History Blood Disorders: No Cardiac Catheterization: No Cardiovascular Problems: No Chest Pain: Yes Congestive Heart Failure: No Diabetes: No Diminished Hearing: No Endocrine: No Gastrointestinal Disorders: No Genitourinary: No Neurologic: No Psychiatric: No Reproductive: No Respiratory: No Immunizations Current: Yes (HEPATITIS) ?: LMP: 09/08/17 Menopausal: No : 6 Para: 4 Miscarriage: 0 : 0 Ectopic : No Ovarian Cysts: No Past Surgical History Section: No Coronary Artery Bypass Graft: No Hysterectomy: No Other Surgery: Yes (1999--BREAST AUGMENTATION; MULTIPLE DENTAL EXTRACTIONS) Social History Alcohol Use: No Tobacco Use: Yes Substance Use: No Allergies-Medications (Allergen,Severity, Reaction): Coded Allergies: codeine (Verified Allergy, Severe, SOB, 11/26/17) ketorolac (Verified Allergy, Severe, "CHEST PAIN", 11/26/17) tramadol (Verified Allergy, Severe, makes her "loopy", 11/26/17) Reported Meds & Prescriptions Reported Meds & Active Scripts Active [place] (Hydrocodone-Acetaminophen) 5 Mg-325 Mg Tab 1 Tab PO Q6H PRN Medrol Dosepak (Methylprednisolone) 4 Mg Dspk 4 Mg PO DIRECTED Per Pharmacist direction Doxycycline Hyclate 100 Mg Cap 100 Mg PO BID 14 Days Review of Systems Except as stated in HPI: all other systems reviewed are Neg General / Constitutional: No: Fever Cardiovascular: No: Chest Pain or Discomfort Respiratory: No: Shortness of Breath Gastrointestinal: No: Nausea, Vomiting, Diarrhea, Abdominal Pain Genitourinary: Positive: Dysuria, Discharge, No: Urgency, Frequency, Pelvic Pain, Vaginal Bleeding Skin: Positive Itching, No Rash Physical Exam Narrative GENERAL: Awake, alert, very pleasant 42-year-old female who appears her stated age and is in no acute respiratory distress. SKIN: Focused skin assessment warm/dry. HEAD: Atraumatic. Normocephalic. EYES: Pupils equal and round. No scleral icterus. No injection or drainage. ENT: No nasal bleeding or discharge. Mucous membranes pink and moist. NECK: Trachea midline. No JVD. GASTROINTESTINAL: Abdomen soft, gravid inferior to the umbilicus. Back: No CVA tenderness. Pelvic: The exam was performed in the presence of a female nurse. External examination reveals mild irritation of the vulva. Speculum examination reveals thin white discharge in the vaginal vault. Cervix is closed. No visible blood. Wet prep and gonorrhea/chlamydia PCR sent to lab. MUSCULOSKELETAL: No obvious deformities. No clubbing. No cyanosis. No edema. NEUROLOGICAL: Awake and alert. No obvious cranial nerve deficits. Motor grossly within normal limits. Normal speech. PSYCHIATRIC: Appropriate mood and affect; insight and judgment normal. Data Data Last Documented VS Vital Signs Date Time Temp Pulse Resp B/P (MAP) Pulse Ox O2 Delivery O2 Flow Rate FiO2 11/26/17 22:49 98.9 62 16 105/56 (72) 99 Orders Orders Beta Hcg (Quant/Titer) (11/27/17 00:18) Gc And Chlamydia Pcr (11/27/17 00:18) Wet Prep Profile (11/27/17 00:18) Urinalysis - C+S If Indicated (11/27/17 00:18) Ed Urine Pregnancytest Poc (11/27/17 00:18) Ed Poc Ultrasound (11/27/17 00:18) Labs Laboratory Tests Test 11/27/17 00:45 11/27/17 00:50 11/27/17 01:50 Urine Color YELLOW Urine Turbidity HAZY Urine pH 5.5 Urine Specific [place] 1.030 Urine Protein 30 mg/dL Urine Glucose (UA) NEG mg/dL Urine Ketones 40 mg/dL Urine Occult Blood NEG Urine Nitrite NEG Urine Bilirubin NEG Urine Urobilinogen 2.0 MG/DL Urine Leukocyte Esterase LARGE Urine RBC 17 /hpf Urine WBC 8 /hpf Urine Squamous Epithelial Cells 26 /hpf Urine Transitional Epithelial Cells <1 /hpf Urine Bacteria RARE /hpf Urine Mucus MANY /lpf Urine Yeast (Budding) RARE Microscopic Urinalysis Comment CULT NOT INDICATED Human Chorionic Gonadotropin, Quant 84672 MIU/ML Clue Cells (Wet Prep) NONE SEEN Vaginal Trichomonas (Wet Prep) NONE SEEN Vaginal Yeast (Wet Prep) PRESENT MDM Medical Decision Making Medical Screen Exam Complete: Yes Emergency Medical Condition: Yes Medical Record Reviewed: Yes Differential Diagnosis Differential diagnosis includes UTI, cervicitis, vaginitis, yeast infection, bacterial vaginosis, trichomonas. Narrative Course Labs were drawn and sent. A bedside ultrasound was performed which reveals an IUP with positive heart tones. The patient was shown the ultrasound as it was performed real time. A UA was sent to lab. A pelvic exam was performed in the presence of a female nurse and gonorrhea/chlamydia PCR and wet prep were sent to lab. UA reviewed, does reveal some RBCs and WBCs with bacteria and yeast. Therefore, patient will be treated with Macrobid. Wet prep is positive for yeast, therefore, patient will be treated with a one-time dose of Diflucan. Patient stable for outpatient follow-up. Procedures Procedure Narrative A bedside ultrasound was performed using a curvilinear probe which reveals an IUP with positive heart tones. The patient was shown the ultrasound as it was performed real time. The patient tolerated the procedure without difficulty and there was no obvious complications. Diagnosis Primary Impression: Intrauterine Additional Impressions: Yeast vaginitis UTI (urinary tract infection) Qualified Codes: N30.01 - Acute cystitis with hematuria Patient Instructions: General Instructions Additional Instructions: Medications as directed. Follow-up with your sales teacher. Please provide the patient a copy of her labs at discharge. Return if symptoms worsen or progress. Med/Other Pt SpecificInfo: Prescription(s) given Scripts Nitrofurantoin Monohydrate Macrocrystals (Macrobid) 100 Mg Capsule 100 MG PO BID for Infection for 10 Days, #20 CAP 0 Refills Prov: Sudarshan Dutton MD 11/27/17 Fluconazole (Diflucan) 150 Mg Tab 150 MG PO ONCE for Infection, #1 TAB 0 Refills Prov: Sudarshan Dutton MD 11/27/17 Disposition: 01 DISCHARGE HOME Condition: Stable Sudarshan Dutton MD Nov 27, 2017 00:33
[2017-11-27 01:22] LABS: BACTERIA, URINE RARE /hpf; BILIRUBIN, URINE NEG (NEG); BLOOD, URINE NEG (NEG); GLUCOSE,URINE NEG (NEG); KETONE, URINE 40 mg/dL (NEG); MUCUS URINE MANY /lpf (OCC); NITRITE,URINE NEG (NEG); PH, URINE 5.5 (5.0-8.5); SQUAMOUS EPITHELIAL CELL URINE 26 /hpf (0-5); TRANSITIONAL EPI CELLS, URINE <1 /hpf; URINE COLOR YELLOW (YELLW/STRAW); URINE LEUKOCYTE ESTERASE LARGE (NEG)
[2017-11-27] MEDS ORDERED: MACR100C2 PO (02:46)
[2017-11-27] MEDS ORDERED: DIFL150T PO (02:46)
== END 2017-11-27 03:32 | disposition home or self-care (01) ==
LOC: NEPE 21:53
DX: O23.10 Infections of bladder in pregnancy, unspecified trimester (principal); N30.01 Acute cystitis with hematuria; B37.3 Candidiasis of vulva and vagina; Z3A.00 Weeks of gestation of pregnancy not specified
CPT/HCPCS: 81001; 84702; 84703; 87210; 87491; 87591; 99284

== ENCOUNTER 2018-06-08 00:33 | Inpatient (IN) ==
[2018-06-08] MEDS ORDERED: Sod Chloride 0.9% Inj 1,000 ML IV.CONT PRN (01:13)
[2018-06-08] MEDS ORDERED: fentaNYL Citrate Inj 100 MCG/2 ML Ampul IV.PUSH PRN (01:13)
[2018-06-08] MEDS ORDERED: Oxytocin 30 Units/500ml Premix 30 UNITS/500 ML BAG IV.SIG ONE (01:13)
[2018-06-08] MEDS ORDERED: Naloxone Inj 0.4 MG/ML Vial IV.PUSH PRN ×2 (01:13→05:17)
[2018-06-08] MEDS ORDERED: Penicillin G Potassium Inj 5,000,000 UNIT in Sodium Chloride 0.9% Inj 100 ML IV.SIG ONE (01:13)
[2018-06-08] MEDS ORDERED: Sodium Chlor 0.9% Inj 500 ML IV.SIG PRN (01:13)
[2018-06-08] MEDS ORDERED: Citric Acid/Sodium Citrate Liq 30 ML UDC PO SCH (01:15)
[2018-06-08] MEDS ORDERED: Sodium Chloride 0.9% 2 ML Flush PRN IV.FLUSH (01:19)
[2018-06-08 01:32] LABS: Baso # (Auto) 0.1 th/mm3 (0.0-0.2); Baso % (Auto) 0.6 % (0.0-2.0); Eos # (Auto) 0.1 th/mm3 (0.0-0.4); Eos % (Auto) 0.8 % (0.0-4.0); Hematocrit 34.4 % (35.0-46.0); Lymph # (Auto) 3.5 th/mm3 (1.0-4.8); Lymph % (Auto) 20.8 % (9.0-44.0); Mean Corpuscular HGB Conc 34.7 % (32.0-36.0); Mean Corpuscular Hemoglobin 31.5 pg (27.0-34.0); Mean Corpuscular Volume 90.8 fL (80.0-100.0); Mean Platelet Volume 8.3 fL (7.0-11.0); Mono % (Auto) 5.9 % (0.0-8.0); Neut # (Auto) 12.1 th/mm3 (1.8-7.7); Neut % (Auto) 71.9 % (16.0-70.0); Platelet Count 289 th/mm3 (150-450); Red Blood Count 3.79 mil/mm3 (4.00-5.30); White Blood Count 16.8 th/mm3 (4.0-11.0)
--- NOTE | 2018-06-08 01:40 | ED ---
History of Present Illness Primary Care Physician: NOT REQUIRED Chief Complaint: Contractions History of Present Illness: 42yo at 39/0 who presents with contractions and vaginal bleeding. Reports that the contractions started this morning, radiate to the back. They are now getting stronger and more frequent. At about 23:00 she reports a large amount of vaginal bleeding. Reports good movement. care with [facility]. GBS +, all other labs negative. Denies any placental abnormalities this . One previous resulted in miscarriage with placental abruption at 22 weeks. She reports no GDM/HTN in this or previous pregnancies. Previous pregnancies delivered at term. PMH: Noncontributory No medications Surgery: Breast augmentation R leg reconstruction FMH non contributory Reports smoking about 1/2 ppd. Denies EtOH or recreational drug use. Allergies: Codeine, ketorolac, tramadol, penicillin Review of Systems Constitutional: Denies chills, Denies fever(s), Denies headache(s) Cardiovascular: Denies chest pain, Denies fainting, Denies leg swelling Respiratory: Denies cough, Denies shortness of breath Gastrointestinal: Reports abdominal pain, Denies nausea, Denies vomiting Genitourinary: Reports abnormal vaginal bleeding, Denies painful urination PMFSH - History History Provided By: Patient - Medical History Medical History: Medical History (Last Updated 02/11/18 @ 09:56 by Inder Caballero) Gout - Surgical History Surgical History: Surgical History (Last Updated 06/08/18 @ 01:29 by Sharmaine Ambrosio MD, R1) History of breast augmentation - Tobacco History Second Hand Smoke Exposure: No Smoking Status: Current every day smoker (1/2 PPD) - Alcohol History How Often Do You Have a Drink Containing Alcohol: Never (Not since ) - Substance Use History Substance History: No History of Abuse - Travel History Recent Travel in the [place] Within the Last 8 Weeks: No Recent Travel Out of the Country Within the Last 8 Weeks: No Medications and Allergies Active Medications: Active Medications Citric Acid/Sodium Citrate (Sodium Citrate/Citric Acid Liq) 30 ml PO [employer] KIANA Stop: 06/12/18 01:14 Fentanyl Citrate (Fentanyl Inj) 50 mcg IV.PUSH Q1H PRN PRN Reason: Pain Scale 3 - 5 Fentanyl Citrate (Fentanyl Inj) 100 mcg IV.PUSH Q1H PRN PRN Reason: PAIN SCALE 6 TO 10 Lactated Ringer's (Lr 1000 Ml Inj) 1,000 mls @ 125 mls/hr IV.CONT .Q8H KIANA Lactated Ringer's (Lr 1000 Ml Inj) 1,000 mls @ 3,000 mls/hr IV.SIG UNSCH PRN PRN Reason: compromise or epidural Sodium Chloride (Ns Inj) 1,000 mls @ 100 mls/hr IV.CONT .Q10H PRN PRN Reason: SEE LABEL COMMENTS Oxytocin (Pitocin 30 Units/Ns 500 Ml Premix) 30 units in 500 mls @ 999 mls/hr IV.SIG BOLUS ONE Stop: 06/08/18 01:43 Sodium Chloride (Ns Inj) 500 mls @ 1,000 mls/hr IV.SIG UNSCH PRN PRN Reason: SEE LABEL COMMENTS Lidocaine HCl (Xylocaine 1% Inj) 0.1 ml I-DERMAL PRN PRN PRN Reason: For IV start Stop: 06/11/18 01:12 Lidocaine HCl (Xylocaine 1% Inj) 10 ml INFILTRATN PRN PRN PRN Reason: For episiotomy repair Stop: 06/10/18 01:12 Mineral Oil (Muri-Lube Oil) 10 ml TOPICAL PRN PRN PRN Reason: PRN perineal massage Naloxone HCl (Narcan Inj) 0.1 mg IV.PUSH Q2M PRN PRN Reason: for opiate reversal Sodium Chloride (Ns Flush) 2 ml IV.FLUSH BID KIANA Sodium Chloride (Ns Flush) 2 ml IV.FLUSH PRN PRN PRN Reason: FLUSH AFTER USING IV ACCESS Allergies Allergy/AdvReac Type Severity Reaction Status Date / Time codeine Allergy Severe Shortness Verified 11/27/17 02:48 of Breath ketorolac Allergy Severe Chest Pain Verified 11/27/17 02:48 tramadol Allergy Severe Vertigo Verified 11/27/17 02:48 penicillin G Allergy Rash Verified 06/08/18 01:33 Exam Vital signs: Vital Signs 06/08/18 00:47 06/08/18 01:00 Temperature 98.1 F Pulse Rate 67 Respiratory Rate 16 Blood Pressure 111/65 Intake & Output 06/07/18 06/07/18 06/08/18 06:59 18:59 06:59 Weight 141 kg Narrative: GENERAL: Well-nourished, well-developed patient. CARDIOVASCULAR: Regular rate and rhythm without murmurs, gallops, or rubs. RESPIRATORY: Breath sounds equal bilaterally. No accessory muscle use. ABDOMEN/GI: Gravid Abdomen bowel sounds present GENITOURINARY: Cervical exam by Dr. Barnes Cervix: Dilatation: 4-5 Effacement: 90% Station: -1 Membranes: intact Uterine Contractions: regular q4-7 minutes FHT's: Category: 1 Baseline: 125 Reactive: yes Variability: moderate Decels: none EXTREMITIES: No cyanosis or edema. NEUROLOGICAL: Awake and alert. Results - Labs CBC & Chem 7: 06/08/18 01:22 Assessment and Plan - Diagnosis (1) 39 weeks gestation of Code(s): Z3A.39 - 39 weeks gestation of Status: Acute (2) GBS (group B streptococcus) infection Code(s): A49.1 - Streptococcal infection, unspecified site Status: Acute - Plan 42yo at 39/0 presents with contractions and bleeding. Status GBS positive. -Admit to labor and delivery -Expectant management with anticipation of -Clindamycin for GBS status as patient has penicillin allergy DW Dr Barnes and Van Discharge Plan - Discharge Disposition Patient Disposition: [place] [facility] [place] Primary Care Provider: NOT REQUIRED, Attending Provider: Trey Barnes - Rxs /Orders / Referrals /Forms Referrals: Primary Care Shonai,Izabela [Family Provider] - See Instructions NOT REQUIRED, [Primary Care Provider] - See Instructions
[2018-06-08] MEDS: fentaNYL Citrate Inj 100 MCG/2 ML Ampul IV.PUSH PRN ×2 (02:03→03:25)
[2018-06-08] MEDS ORDERED: Lidocaine 1% Inj 50 ML Vial ONE (02:13)
[2018-06-08] MEDS ORDERED: Clindamycin Inj 900 MG in Sodium Chlor 0.9% Inj 100 ML IV.SIG SCH (04:00)
[2018-06-08 04:21] LABS: Amphetamine Urine With Conf Neg (Neg); Benzodiazepine Urine With Conf Neg (Neg); Cocaine Urine With Conf Neg (Neg); Opiates Urine With Conf Neg (Neg)
[2018-06-08 04:31] LABS: Cannabinoid Urine With Conf Pos (Neg)
[2018-06-08 04:33] LABS: Bilirubin,Urine Negative (Negative); Clarity,Urine Clear (Clear); Color,Urine Yellow (Yellw/Straw); Glucose,Urine (UA) Negative (Negative); Leukocyte Esterase,Urine Negative (Negative); Mucus,Urine Few /lpf (Occasional); Nitrite,Urine Negative (Negative); Specific Gravity,Urine 1.008 (1.002-1.035); Squamous Epithelial Cell,Urine 1 /hpf (0-5)
[2018-06-08] MEDS ORDERED: Penicillin G Potassium Inj 2,500,000 UNIT in Sodium Chlor 0.9% Inj 100 ML IV.SIG SCH (05:00)
[2018-06-08] MEDS ORDERED: Oxytocin 30 Units/500ml Premix 30 UNITS/500 ML BAG IV.CONT PRN (05:17)
[2018-06-08] MEDS ORDERED: Witch Hazel 50%/Glyderin 12.5% 40 Pad Jar RECTAL PRN (05:17)
[2018-06-08] MEDS ORDERED: Acetaminophen 325 MG Tablet PO PRN (05:17)
[2018-06-08] MEDS ORDERED: Zolpidem Tartrate 5 MG Tablet PO PRN (05:17)
[2018-06-08] MEDS ORDERED: Benzocaine 20% Top Spray 60 ML Can TOPICAL PRN (05:17)
[2018-06-08] MEDS ORDERED: Bisacodyl 10 MG Supp RECTAL PRN (05:17)
--- NOTE | 2018-06-08 05:17 | P.OBDELI ---
Weeks Gestation: 39 Anesthesia: Lidocaine local to perineum Episiotomy: none Vaginal Delivery: Normal Presentation: Occiput anterior Nuchal Cord: None Delayed Cord Clamping (45 sec): Yes Placenta: Spontaneous delivery Laceration: Perineal, 2 deg Repair: Chromic running Estimated blood loss (mL): 100 Infant: Male Male A Infant Delivery Date: 06/08/18 Delivery Time: 04:39 Weight: 2.95 kg score (1 min): 8 score (5 min): 9 (Marginal abruption noted at the placental examination)
[2018-06-08] MEDS ORDERED: Sodium Chloride 0.9% 2 ML Flush BID IV.FLUSH SCH (09:00)
[2018-06-08] MEDS: Senna/Docusate Sodium 8.6/50 MG Tablet PO SCH ×2 (09:00→22:50)
[2018-06-08] MEDS ORDERED: Measles/Mumps/Rubella Vaccine Inj 0.5 ML Vial SQ ONE (16:00)
[2018-06-08] MEDS ORDERED: Diphtheria/Tetanus/Pertussis Vaccine Inj 0.5 ML Syringe IM ONE (16:00)
[2018-06-09] MEDS: Senna/Docusate Sodium 8.6/50 MG Tablet PO SCH ×2 (08:37→21:04)
--- NOTE | 2018-06-09 08:38 | P.PNOB ---
Subjective Post day: 1 Interval history: Patient is a 42-year-old G 7 P 6 delivered at 39 weeks. Patient is day 1 after . Patient's pain is well-controlled. Patient reports eating and drinking without any nausea or vomiting. Patient reports minimal bleeding. Patient has passed gas but no bowel movements. Patient is walking without lower extremity pain or shortness of breath. Patient reports desire for contraception and formula-feeding. Objective Vital Signs/I&O: Vital Signs 06/08/18 20:00 Temperature 98.0 F Pulse Rate 56 L Respiratory Rate 18 Blood Pressure 102/57 L Result Diagrams: 06/08/18 01:22 Objective Remarks: GENERAL: Well-nourished, well-developed patient. CARDIOVASCULAR: Regular rate and rhythm without murmurs, gallops, or rubs. RESPIRATORY: Breath sounds equal bilaterally. No accessory muscle use. ABDOMEN/GI: Abdomen soft, non-tender. Fundus: Firm, non-tender at umbilicus. GENITOURINARY: Light to moderate bleeding. EXTREMITIES: No cyanosis or edema, non-tender, without signs of DVT. Medications and IVs: Active Medications Acetaminophen (Tylenol) 650 mg PO Q4H PRN PRN Reason: PAIN SCALE 1 TO 2 Last Admin: 06/08/18 05:51 Dose: 650 mg Al Hydroxide/Mg Hydroxide (Milk Of Magnesia Liq) 30 ml PO Q12H PRN PRN Reason: Mild Constipation Benzocaine (Americaine 20% Top [place]) 1 spray TOPICAL Q4H PRN PRN Reason: For Perineum Discomfort Last Admin: 06/08/18 14:18 Dose: 1 spray Bisacodyl (Dulcolax Supp) 10 mg RECTAL DAILY PRN PRN Reason: SEVERE CONSITIPATION Oxytocin (Pitocin 30 Units/Ns 500 Ml Premix) 30 units in 500 mls @ 100 mls/hr IV.CONT UNSCH PRN PRN Reason: Heavy bleeding Lactulose (Lactulose Liq) 30 ml PO DAILY PRN PRN Reason: SEVERE CONSITIPATION Naloxone HCl (Narcan Inj) 0.1 mg IV.PUSH Q2M PRN PRN Reason: for opiate reversal Ondansetron HCl (Zofran Odt) 4 mg PO Q6H PRN PRN Reason: NAUSEA OR VOMITING Oxycodone/Acetaminophen (Percocet 5/325 Mg) 1 tab PO Q4H PRN PRN Reason: PAIN SCALE 3 TO 5 Last Admin: 06/09/18 02:33 Dose: 1 tab Senna/Docusate Sodium (Loree-Colace) 1 tab PO BID [facility] Last Admin: 06/08/18 22:50 Dose: Not Given Sennosides (Senokot) 17.2 mg PO Q12H PRN PRN Reason: Moderate Constipation Sodium Chloride (Ns Flush) 2 ml IV.FLUSH PRN PRN PRN Reason: FLUSH AFTER USING IV ACCESS Sodium Chloride (Ns Flush) 2 ml IV.FLUSH BID [facility] Last Admin: 06/08/18 22:50 Dose: Not Given Witch Lupe/Glycerin (Tucks Pads) 1 applicatio RECTAL QID PRN PRN Reason: HEMORRHOIDS Last Admin: 06/08/18 14:18 Dose: 1 applicatio Zolpidem Tartrate (Ambien) 5 mg PO HS PRN PRN Reason: SLEEP Assessment and Plan - Diagnosis (1) Vaginal delivery Code(s): O80 - Encounter for full-term uncomplicated delivery Status: Acute - Plan Patient is a 42-year-old G 7 P 6 delivered at 39 weeks. Patient is day 1 after . Patient was counseled to do 6 weeks of pelvic rest. Patient was counseled to follow up in 6 weeks. Patient requested follow-up and contraception. --AF VSS --Continue routine care --Motrin and Tylenol when necessary for pain --Encourage OOB --Pelvic rest for 6 weeks will need follow-up appointment at that time. --Contraception: tubal --Anticipate discharge tomorrow Discussed with Dr. Barreto and Dr. Severino
--- NOTE | 2018-06-10 08:37 | P.PNOB ---
Subjective Post day: 2 Interval history: Patient is a 42-year-old G 7 P 6 delivered at 39 weeks. Patient is day 2 after . Patient's pain is well-controlled. Patient reports eating and drinking without any nausea or vomiting. Patient reports minimal bleeding. Patient has passed gas but no bowel movements. Patient is walking without lower extremity pain or shortness of breath. Patient reports desire for contraception and has signed consents for tubal ligation. Objective Vital Signs/I&O: Vital Signs 06/09/18 19:55 06/10/18 08:00 Temperature 97.7 F 98.6 F Pulse Rate 55 L 56 L Respiratory Rate 18 18 Blood Pressure 102/67 102/70 Result Diagrams: 06/08/18 01:22 Objective Remarks: GENERAL: Well-nourished, well-developed patient, sitting up in hospital bed CARDIOVASCULAR: Regular rate and rhythm without murmurs, gallops, or rubs. RESPIRATORY: Breath sounds equal bilaterally. No accessory muscle use. ABDOMEN/GI: Abdomen soft, non-tender. Fundus: Firm, non-tender at umbilicus. GENITOURINARY: Light to moderate bleeding. EXTREMITIES: No cyanosis or edema, non-tender, without signs of DVT. Medications and IVs: Active Medications Acetaminophen (Tylenol) 650 mg PO Q4H PRN PRN Reason: PAIN SCALE 1 TO 2 Last Admin: 06/08/18 05:51 Dose: 650 mg Al Hydroxide/Mg Hydroxide (Milk Of Magnesia Liq) 30 ml PO Q12H PRN PRN Reason: Mild Constipation Benzocaine (Americaine 20% Top [place]) 1 spray TOPICAL Q4H PRN PRN Reason: For Perineum Discomfort Last Admin: 06/08/18 14:18 Dose: 1 spray Bisacodyl (Dulcolax Supp) 10 mg RECTAL DAILY PRN PRN Reason: SEVERE CONSITIPATION Oxytocin (Pitocin 30 Units/Ns 500 Ml Premix) 30 units in 500 mls @ 100 mls/hr IV.CONT UNSCH PRN PRN Reason: Heavy bleeding Lactulose (Lactulose Liq) 30 ml PO DAILY PRN PRN Reason: SEVERE CONSITIPATION Naloxone HCl (Narcan Inj) 0.1 mg IV.PUSH Q2M PRN PRN Reason: for opiate reversal Ondansetron HCl (Zofran Odt) 4 mg PO Q6H PRN PRN Reason: NAUSEA OR VOMITING Oxycodone/Acetaminophen (Percocet 5/325 Mg) 1 tab PO Q4H PRN PRN Reason: PAIN SCALE 3 TO 5 Last Admin: 06/10/18 06:28 Dose: 1 tab Senna/Docusate Sodium (Loree-Colace) 1 tab PO BID [facility] Last Admin: 06/09/18 21:04 Dose: 1 tab Sennosides (Senokot) 17.2 mg PO Q12H PRN PRN Reason: Moderate Constipation Sodium Chloride (Ns Flush) 2 ml IV.FLUSH PRN PRN PRN Reason: FLUSH AFTER USING IV ACCESS Sodium Chloride (Ns Flush) 2 ml IV.FLUSH BID [facility] Last Admin: 06/10/18 00:20 Dose: Not Given Witch Lupe/Glycerin (Tucks Pads) 1 applicatio RECTAL QID PRN PRN Reason: HEMORRHOIDS Last Admin: 06/08/18 14:18 Dose: 1 applicatio Zolpidem Tartrate (Ambien) 5 mg PO HS PRN PRN Reason: SLEEP Assessment and Plan - Diagnosis (1) Vaginal delivery Code(s): O80 - Encounter for full-term uncomplicated delivery Status: Acute - Plan Patient is a 42-year-old G 7 P 6 delivered at 39 weeks. Patient is day 2 after . Patient was counseled to do 6 weeks of pelvic rest. Patient was counseled to follow up in 6 weeks. Patient requested follow-up and contraception. --AF VSS --Continue routine care --Motrin and Tylenol when necessary for pain --Encourage OOB --Pelvic rest for 6 weeks will need follow-up appointment at that time. --Contraception: tubal ligation --Anticipate discharge today Discussed with Dr. Nieto and Dr. Barnes
[2018-06-10] MEDS: Senna/Docusate Sodium 8.6/50 MG Tablet PO SCH (10:35)
== END 2018-06-10 10:41 | disposition home or self-care (01) ==
LOC: HOBED 00:33 → H2E 01:28 → H1EA 07:43
PROVIDERS: ADMIT Obstetrics & Gynecology Maternal & Fetal Medicine; ATTEND Obstetrics & Gynecology Maternal & Fetal Medicine